=== PATIENT | male | born 1950 ===

== ENCOUNTER 2017-11-17 16:24 | Emergency (ER) | payer OTHER, MEDICARE, SELFPAY ==
[2017-11-17 16:32] VITALS: BP 150/89; PULSE 60; RESP 16; TEMP 36.6; O2SAT 98
[2017-11-17 17:15] LABS: Abs Immature Grans 0.01 k/cumm (0.0-0.09); Absolute Basophil Count 0.05 k/cumm (0.0-0.2); Absolute Eosinophil Count 0.19 k/cumm (0.0-0.7); Absolute Lymphocyte Count 2.09 k/cumm (1.2-3.4); Absolute Monocyte Count 0.66 k/cumm (0.11-0.7); Absolute Neutrophil Count 4.94 k/cumm (1.2-6.7); Basophils % 0.6; Eosinophils % 2.4; HCT 45.5 % (40.0-50.0); HGB 15.3 g/dL (13.5-17.5); Immature Grans % 0.1; Lymphocytes % 26.3; Mean Corp. HGB Concentration 33.6 g/dL (32.0-36.0); Mean Corpuscular Hemoglobin 30.5 pg (27.0-33.0); Mean Corpuscular Volume 90.6 fL (80-95); Mean Platelet Volume 9.8 fL (8.0-11.0); Monocytes % 8.3; Neutrophils % 62.3; Platelet Count 275 x1000/uL (130-400); RBC 5.02 m/cumm (4.50-6.00); RBC Distribution Width 13.3 % (11.8-14.1); White Blood Cell Count 7.94 k/cumm (4.4-10.8)
--- NOTE | 2017-11-17 17:52 | ED.GENADUL ---
Disposition Clinical Impression: Trigeminal neuralgia of left side of face Disposition: HOME Condition: Stable Instructions: Trigeminal Neuralgia (ED) Additional Instructions: Return immediately to the emergency department for any worsening of condition, fever chills, other persistent neurological deficits or changes. Otherwise it is recommended that you follow-up with your primary care provider when you return home. Prescriptions: Carbamazepine [Carbamazepine ER] 100 mg PO BID #30 tab.er.12h Referrals: Primary Care Provider [Outside] (As soon as you return home follow-up with your primary care provider for reassessment.) Medical Decision Making - Lab Data Results reviewed for labs ordered during visit: Yes - Medical Decision Making Patient presenting to the emergency department for chief complaint of intermittent left-sided facial pain. Patient states that it seems to worsen when he chews, occasionally yawns, or even one occurrence was washing his face. Physical exam is unremarkable and shows no neurological deficits, no visual changes, unremarkable oropharynx exam, normal cranial nerve exam. Given patient's symptoms I have high suspicion for trigeminal neuralgia. Patient denies any current pain or discomfort at this time so I doubt CVA, TIA, or mass occupying lesion. Patient did call his primary care provider who was concerned about possible electrolyte abnormalities given that he is on a diuretic for his blood pressure so we discussed laboratory testing at this time. CBC and CMP was ordered. After review of labs which are unremarkable except for mild low potassium and otherwise nondiagnostic with no severe deficiency of other electrolytes patient reassessed. Patient continues state that he has been pain and symptom-free since being in the emergency department. I feel the patient is suffering from trigeminal neuralgia on the left side given the sudden sharp shooting pain that occurs with chewing or even light touch of the skin. Given this patient was placed upon carbamazepine 100 mg twice daily and informed that he should take this for 3 days and then if he is continuing to have symptoms to increase it to 200 mg twice daily until he can see his primary care provider which he states is in approximately 1 week when he returns home to [place]. Patient was encouraged to return immediately for any new or worsening signs or symptoms. After discussion of diagnosis and plan of care with patient patient agreed and stated no further needs, questions, or concerns at this time. History of Present Illness - General Chief complaint: DentalOral Stated complaint: JAW PAIN AND SPASMS Time Seen by Provider: 11/17/17 16:55 Source: patient, family, RN notes reviewed Mode of arrival: ambulatory Limitations: no limitations - History of Present Illness Initial comments: Patient reports over the past week he has been having sudden sharp shooting left jaw pain. He states he has dentures he has no teeth that could be causing this but symptoms do seem to come on when he is chewing food or drinking water. Patient does report one episode where he was in the shower washing his face and had an onset of the symptoms as well. Patient does state that this happened a couple years ago and resolved spontaneously after about a week but was not as severe. Patient denies any injury or trauma, headache, visual changes. Patient states that he at this time has no symptoms and that symptoms are sharp shooting and excruciating but only lasts for a couple seconds. Patient denies any pain or discomfort. Onset/Timin -: week(s) Location: face, left Consistency: now resolved Improves with: none Worsens with: none Associated Symptoms: denies other symptoms Treatments Prior to Arrival: none - Related Data Bp Med DAILY 11/17/17 Carbamazepine [Carbamazepine ER] 100 mg PO BID #30 tab.er.12h 11/17/17 Cholecalciferol (Vitamin D3) [Vitamin D3] 1,000 unit PO DAILY 11/17/17 Finasteride 5 mg PO DAILY 11/17/17 Lysine 1,000 mg PO DAILY 11/17/17 MetFORMIN [Glucophage] 1,000 mg PO DAILY 11/17/17 [place]-3 Fatty Acids/Fish Oil [Fish Oil 1,000 mg Softgel] 3 cap PO DAILY 11/17/17 Rosuvastatin [Crestor] 10 mg PO DAILY 11/17/17 Allergies Allergy/AdvReac Type Severity Reaction Status Date / Time No Known Allergies Allergy Unverified 11/17/17 16:37 Review of Systems Constitutional: denies: chills, fever ENT: as per HPI. denies: throat pain, congestion Respiratory: denies: cough, shortness of breath Cardiovascular: denies: chest pain Gastrointestinal: denies: abdominal pain, nausea, vomiting, diarrhea Neurological: denies: headache, weakness, numbness, paresthesias, confusion, abnormal gait Past Medical History - Past Medical History Medical history: cancer (Melanoma, kidney cancer), hyperlipidemia, hypertension Enlarged prostate Surgical history: appendectomy, other (Facial melanoma removed) - Social History Smoking status: never smoker Alcohol use: occasionally Drug use: none Living Situation: other (Visiting the area from [place] but lives with family otherwise) General Exam - General Limitations: no limitations General appearance: alert, in no apparent distress - Head Head exam: Present: normocephalic - Eye Eye exam: Present: normal apperance, PERRL, EOMI. Absent: scleral icterus, conjunctival injection, nystagmus, periorbital swelling Pupils: Present: normal accommodation - ENT ENT exam: Present: normal exam, normal orophraynx (Patient is missing all of his teeth and has dentures in place but otherwise unremarkable exam), mucous membranes moist, TM's normal bilaterally, normal external ear exam - Neck Neck exam: Present: normal inspection, full ROM. Absent: tenderness, meningismus, lymphadenopathy - Respiratory Respiratory exam: Present: normal lung sounds bilaterally. Absent: respiratory distress, wheezes, rales, rhonchi, stridor - Cardiovascular Cardiovascular Exam: Present: regular rate, normal rhythm, normal heart sounds - Neurological Exam Neurological exam: Present: alert, oriented X3, CN II-XII intact, normal gait. Absent: altered, motor sensory deficit - Expanded Neurological Exam No standard instances Patient oriented to: Present: person, place, time Speech: Present: fluid speech Cranial nerves: EOM's Intact: Normal, Gag Reflex: Normal, Tongue Deviation: Normal, Nystagmus: Normal, Facial Sensation: Normal, Facial Palsy with Forehead Movement: Normal, Facial Palsy without Forehead Movement: Normal Best Eye Response ([place]): (4) open spontaneously Best Motor Response ([place]): (6) obeys commands Best Verbal Response ([place]): (5) oriented - Skin Skin exam: Present: warm, dry, intact, normal color. Absent: rash, vesicles, petechiae Course Vital Signs - 24 hr 11/17/17 16:32 Temperature 36.6 C Pulse 60 Respiratory 16 Rate Blood Pressure 150/89 Pulse Oximetry 98
[2017-11-17 18:00] LABS: ALT 58 U/L (12-78); AST 49 U/L (15-37); Albumin 3.6 g/dL (3.4-5.0); Alkaline Phosphatase 70 U/L (46-116); Anion Gap 9.4 mmol/L (3-11); BUN 11 mg/dL (7-18); Bilirubin, Total 0.4 mg/dL (0.2-1.0); CO2 28.6 mmol/L (21.0-32.0); CREATININE 1.29 mg/dL (0.70-1.30); Calcium 8.7 mg/dL (8.5-10.1); Chloride 104 mmol/L (98-107); Estimated GFR 55.56 (mL/min/1.73m2); Glucose 90 mg/dL (70-100); Magnesium 1.9 mg/dL (1.8-2.4); Potassium 3.3 mmol/L (3.5-5.1); Sodium 142 mmol/L (136-145); Total Protein 7.3 g/dL (6.4-8.2)
[2017-11-17 18:14] VITALS: BP 150/89; PULSE 60; RESP 16; TEMP 36.6; O2SAT 98
== END 2017-11-17 18:15 | disposition home or self-care (01) ==
PROVIDERS: Nurse Practitioner Family; Emergency Provider Physician Assistant
DX: G50.0 Trigeminal neuralgia (principal); I10 Essential (primary) hypertension
CPT/HCPCS: 36415; 80053; 99283; 83735; 85025